=== PATIENT | female | born 1945 | race Caucasian/White ===

== ENCOUNTER → 2017-03-03 | Outpatient (CLI) | payer OTHER, MEDICARE | LOC: CIMAGING 08:41 | DX: Z12.31 Encounter for screening mammogram for malignant neoplasm of breast (principal) | CPT/HCPCS: G0202 ==

== ENCOUNTER → 2017-03-13 | Outpatient (CLI) | payer OTHER, MEDICARE | LOC: CIMAGING 12:54 | DX: R92.8 Other abnormal and inconclusive findings on diagnostic imaging of breast (principal) | CPT/HCPCS: G0206 ==

== ENCOUNTER → 2018-03-17 | Outpatient (CLI) | payer OTHER, MEDICARE | LOC: CIMAGING 12:37 | PROVIDERS: ATTEND Family Medicine | DX: Z12.31 Encounter for screening mammogram for malignant neoplasm of breast (principal); Z80.3 Family history of malignant neoplasm of breast ==

== ENCOUNTER 2018-06-19 09:03 | Emergency (ER) | payer OTHER, MEDICARE ==
[2018-06-19 09:14] VITALS: BP 189/70
--- NOTE | 2018-06-19 09:43 | EDPHY ---
H & P Time Seen by Provider: 06/19/18 09:04 HPI/ROS: CHIEF COMPLAINT: Yellow jacket sting to face. HISTORY OF PRESENT ILLNESS: Patient states that late in the afternoon on Friday she was stung by a yellow jacket to her right cheek. It was both painful and itchy. She did take Benadryl yesterday which made her sleepy but helped a little bit. This morning it was more swollen and there was a small blister that was oozing and she called the nurse advice line. They told her to come to the emergency department for evaluation for risk of anaphylaxis. Patient states no shortness of breath, no sore throat, stating occurred 2 days ago. She describes a sensation to her face as"tight". Some itching although not severe. Minimal pain. REVIEW OF SYSTEMS: Negative except per HPI. General Appearance: Alert, no distress. Eyes: Pupils equal and round no icterus. Extraocular motions intact. HEENT: Right cheek swollen, erythematous, a tiny blistered area to central cheek with some yellow clear crusted fluid. Oropharynx clear, uvula midline, no edema, sublingual tissue soft. No focal fluid collection to right buccal area. Diffusely indurated to palpation. No cervical lymphadenopathy. Respiratory: No respiratory distress Neurological: Awake, alert, no focal deficits. Skin: Warm and dry, no rashes. Musculoskeletal: Neck is supple nontender. Extremities are symmetrical, full range of motion, no edema. Psychiatric: Patient is oriented X 3, there is no agitation. Medical/surgical history: Cataract surgery, hip surgery. Social history: No alcohol, tobacco, drugs. Smoking Status: Never smoked Constitutional: Initial Vital Signs Temperature (C) 37.1 C 06/19/18 09:09 Heart Rate 50 L 06/19/18 09:09 Respiratory Rate 16 06/19/18 09:09 Blood Pressure 189/70 H 06/19/18 09:09 O2 Sat (%) 97 06/19/18 09:09 O2 Delivery Mode Room Air Allergies/Adverse Reactions: No Known Allergies Allergy (Unverified 06/19/18 09:14) Home Medications: Medication Instructions Recorded NK [No Known Home Meds] 06/19/18 Medical Decision Making Differential Diagnosis: Differential diagnosis includes but is not limited to insect sting, cellulitis, anaphylaxis, facial abscess. After evaluation patient appears to have local reaction to yellow jacket sting without signs of systemic involvement. No evidence of infection or abscess. Discussed symptomatic control with cool packs and Benadryl. Signs of infection discussed in detail and return precautions reviewed. No indication for prescription for EpiPen at this time. Stable for discharge. Departure - Departure Disposition: Home, Routine, Self-Care Clinical Impression: Sting, insect Qualifiers: Encounter type: initial encounter Injury intent: accidental or unintentional Qualified Code(s): T63.481A - Toxic effect of venom of other arthropod, accidental (unintentional), initial encounter Condition: Good Instructions: Insect Bite or Sting (ED) Additional Instructions: Use cold or warm packs as discussed. Benadryl will help with itching and redness. Keep the small wound covered with a thin layer of antibiotic ointment. If you have concerns of infection please return to the emergency department or see your primary care doctor. Referrals: Goran Gordon, [Primary Care Provider] - As per Instructions
== END 2018-06-19 09:50 | disposition home or self-care (01) ==
LOC: CED 09:03
DX: T63.461A Toxic effect of venom of wasps, accidental (unintentional), initial encounter (principal)

== ENCOUNTER → 2019-01-08 | Outpatient (CLI) | payer OTHER, MEDICARE | LOC: BRMIMAGING 10:57 | PROVIDERS: ATTEND Family Medicine | DX: Z13.820 Encounter for screening for osteoporosis (principal); M85.89 Other specified disorders of bone density and structure, multiple sites; Z78.0 Asymptomatic menopausal state ==

== ENCOUNTER → 2019-03-24 | Outpatient (CLI) | payer OTHER, MEDICARE | LOC: CIMAGING 12:51 | PROVIDERS: ATTEND Family Medicine | DX: Z12.31 Encounter for screening mammogram for malignant neoplasm of breast (principal); Z80.3 Family history of malignant neoplasm of breast ==